=== PATIENT | female | born 1950 | race Caucasian/White ===

== ENCOUNTER 2021-08-19 11:21 | Emergency (ER) | payer MEDICARE, OTHER ==
--- NOTE | 2021-08-19 11:47 | EDM.PDOC ---
ED HPI GENERAL MEDICAL PROBLEM - General Stated Complaint: syncope fall Time Seen by Provider: 08/19/21 11:40 Source of Information: Reports: Patient History Limitations: Reports: No Limitations - History of Present Illness INITIAL COMMENTS - FREE TEXT/NARRATIVE: This patient comes emergency department today from home by ambulance with concerns of a fall. This patient has a history of diabetes hypertension morbid obesity. Woke up this morning and she was feeling fine without any complaints. She was walking to the kitchen when she had a syncopal episode. She did not have any symptoms prior to her fall. She relates that she was just walking in the next thing is she found herself on the ground. She had a bloody nose. She had pain to her left hand and she was unsure of what happened. She has amnesia of the fall. Although she does remember right up to the fall. She summoned the ambulance and the ambulance was brought to the emergency department. Upon arrival to the emergency department the patient is complaining of pain to her left hand as well as just feeling tired. She has no headache visual acuity changes. No neck pain. No paresthesias of her upper or lower extremities. No change in the functionality of her upper or lower remedies. She denies any chest pain shortness of breath or difficulty breathing. No abdominal pain. No back or lower back pain. No pelvis pain. No weakness dizziness lightheadedness. No fever no chills. Left Hand Pain Score (Numeric/FACES): 2 Right Thoracic Pain Score (Numeric/FACES): 2 - Related Data Allergies Allergy/AdvReac Type Severity Reaction Status Date / Time No Known Allergies Allergy Verified 08/19/21 12:49 Home Meds: Home Meds Ascorbic Acid [Vitamin C] 1,000 mg PO DAILY 08/19/21 [History] Aspirin [Aspirin EC] 81 mg PO DAILY 08/19/21 [History] Ca/D3/Mag Ox/Zinc/Split And Drum Room Supervisor/Tru/Bor [Calcium 600+D3 Plus Caplet] 2 each PO DAILY 08/19/21 [History] Hydrocodone/Acetaminophen [HYDROcodone-Acetaminophen 5-325 MG] 1 each PO Q6HR PRN #10 tab 08/19/21 [Rx] Losartan Potassium [Cozaar] 100 mg PO DAILY 08/19/21 [History] Metoprolol Succinate [Toprol XL 100mg] 100 mg PO DAILY 08/19/21 [History] Multivitamin [Multi-Vitamin Daily] 1 each PO DAILY 08/19/21 [History] Rivaroxaban [Xarelto] 20 mg PO DAILY #30 tablet 08/19/21 [Rx] Rosuvastatin [Crestor] 10 mg PO DAILY 08/19/21 [History] amLODIPine [Norvasc] 7.5 mg PO DAILY 08/19/21 [History] ED ROS GENERAL - Review of Systems Review Of Systems: Comprehensive ROS is negative, except as noted in HPI. ED EXAM, NEURO - Physical Exam Exam: See Below Exam Limited By: No Limitations General Appearance: Alert, WD/WN, No Apparent Distress Eye Exam: Bilateral Eye: EOMI, Normal Inspection, PERRL Ears: Normal External Exam, Normal Canal, Hearing Grossly Normal, Normal TMs Nose: Normal Mucosa. No: Normal Inspection (There is some dried blood in the nares with a contusion on the tip of the nose otherwise unremarkable. ), Nasal Tenderness, Nasal Deformity, Nasal Swelling, Nasal Drainage Throat/Mouth: Normal Inspection, Normal Lips, Normal Teeth, Normal Gums, Normal Oropharynx, Normal Voice, No Airway Compromise Head Exam: Atraumatic, Normocephalic Neck: Normal Inspection, Supple, Non-Tender, Full Range of Motion, Other (C Spine cleared by nexus criteria). No: Tender Lateral, Tender Midline Respiratory/Chest: No Respiratory Distress, Lungs Clear, Normal Breath Sounds, No Accessory Muscle Use. No: Chest Non-Tender (Tenderness to the right lateral mid chest about rib 7/8 no bruisng ecchymosis or subcut emphysema) Cardiovascular: Normal Peripheral Pulses, No Murmur, Irregularly Irregular GI/Abdominal: Normal Bowel Sounds, Soft, Non-Tender Rectal (Female) Exam: Deferred Neurological: Alert, Normal Mood/Affect, Normal Dorsiflexion, CN II-XII Intact, Normal Plantar Flexion, Normal Gait, Normal Reflexes, No Motor/Sensory Deficits, Oriented x 3 Back Exam: Normal Inspection, Full Range of Motion. No: Paraspinal Tenderness, Vertebral Tenderness Extremities: No: Normal Inspection (Normal other than swelling to the MCP joint left hand 2nd finger. Able to flex and extend at all joints appropriately. ) Psychiatric: Normal Affect, Normal Mood Skin Exam: Warm, Dry, Intact, Normal Color, No Rash Course - Vital Signs Last Recorded V/S: Last Vital Signs Temp 97.5 F 08/19/21 11:25 Pulse 70 08/19/21 11:25 Resp 16 08/19/21 11:25 BP 135/72 08/19/21 11:25 Pulse Ox 95 08/19/21 11:25 - Orders/Labs/Meds Labs: Laboratory Tests 08/19/21 08/19/21 Range/Units 11:59 11:59 WBC 9.5 (4.0-10.0) x10^3/uL RBC 4.59 (4.00-5.50) x10^6/uL Hgb 14.3 (12.0-16.0) g/dL Hct 42.4 (33.0-47.0) % MCV 92.4 (78.0-93.0) fL MCH 31.2 (26.0-32.0) pg MCHC 33.7 (32.0-36.0) g/dL RDW Coeff of [place] 12.1 (10.0-15.0) % Plt Count 192 (130-400) x10^3/uL Immature Gran % (Auto) 0.50 H (0.00-0.43) % Neut % (Auto) 82.2 H (50.0-80.0) % Lymph % (Auto) 11.3 L (25.0-50.0) % [place] % (Auto) 5.6 (2.0-11.0) % Eos % (Auto) 0.2 (0.0-4.0) % Baso % (Auto) 0.2 (0.2-1.2) % Neut # (Auto) 7.8 H (1.8-7.7) x10^3/uL Lymph # (Auto) 1.1 (1.0-4.8) x10^3/uL [place] # (Auto) 0.5 (0.0-0.8) x10^3/uL Eos # (Auto) 0.0 (0.0-0.5) x10^3/uL Baso # (Auto) 0.0 (0.0-0.2) x10^3/uL Immature Gran # (Auto) 0.05 (0.00-0.07) x10^3/uL Sodium 141 (136-145) mmol/L Potassium 3.9 (3.5-5.1) mmol/L Chloride 104 (98-107) mmol/L Carbon Dioxide 29 (21-32) mmol/L Anion Gap 11.9 (5-15) mmol/L BUN 23 H (7-18) mg/dL Creatinine 1.0 (0.55-1.02) mg/dL Est Cr Clr Drug Dosing TNP Estimated GFR (MDRD) 54 Glucose 138 H (70-99) mg/dL Calcium 9.4 (8.5-10.1) mg/dL Corrected Calcium 9.6 (8.5-10.1) mg/dL Total Bilirubin 0.9 (0.2-1.0) mg/dL AST 44 H (15-37) U/L ALT 69 H (14-59) U/L Alkaline Phosphatase 92 (46-116) U/L Troponin I High Sens 8 (<=51) ng/L Total Protein 7.6 (6.4-8.2) g/dL Albumin 3.7 (3.4-5.0) g/dL Globulin 3.9 Albumin/Globulin Ratio 0.95 Meds: Medications Discontinued Medications Generic Name Dose Route Start Last Admin Trade Name Freq PRN Reason Stop Dose Admin Ibuprofen 600 mg 08/19/21 14:30 08/19/21 14:44 Ibuprofen 200 Mg Tab PO 08/19/21 14:31 600 mg NOW STA Administration Rivaroxaban 20 mg 08/19/21 14:29 08/19/21 14:44 Rivaroxaban 10 Mg Tab PO 08/19/21 14:30 20 mg NOW STA Administration Rivaroxaban 20 mg 08/19/21 14:34 08/19/21 14:45 Rivaroxaban 10 Mg Tab PO 08/19/21 14:35 Not Given NOW STA - Radiology Interpretation Free Text/Narrative:: X-ray of the left hand initially reviewed extemporaneously by myself shows a impacted comminuted fracture of the distal left second metacarpal that appears to extend somewhat into the articulation of the MCP joint. Radiological review to follow. X-ray of the left hand per radiology shows abnormal appearance of the second digit metacarpal in its distal aspect at the MCP articulation. Findings suggest a mildly comminuted and slightly impacted acute fracture extending to the MCP articulation. Correlate with site of pain. CT of the head per radiology shows no acute intracranial findings. Xray initially reviewed by myself extemporaneously I do not see any hemopneumothorax pulmonary contusion infiltrates hemopneumothorax. There is some old healed rib fractures. X-ray of the ribs per radiology including chest shows cardiomediastinal silhouette is unremarkable. Acute appearing right anterolateral eighth rib fracture. No significant displacement. No other fractures are identified. No pulmonary contusion or pneumothorax. The x-ray report from the radiologist was received after the patient was discharged. She was called at home and updated on the findings of the rib fracture. - Re-Assessments/Exams Free Text/Narrative Re-Assessment/Exam: IV was established labs are drawn. EKG shows a controlled atrial fib rate. I reviewed her [place] chart as well as contacting [facility] and I do not see any evidence of where she is at or had an EKG in her past. She is currently on metoprolol although she reports that she takes this for blood pressure and has never been told that she has had atrial fibrillation in the past. CT of the head is unremarkable. She clearly has a fracture of the left second finger distal metacarpal. Patient was placed in a fiberglass splint that manufactured by myself for placement. A stockinette batting and a 3 inch Ortho-Glass splint was fashioned in the left hand a short arm wrist splint in the hand of neutral position. CMS is intact after application. Her laboratory evaluation is rather unremarkable. She has a normal troponin. Normal creatinine. Chest x-ray initially reviewed extemporaneously I do not see any bony abnormality hemopneumothorax. Radiological review to follow. I did get the patient up and ambulate her around the department and she felt quite well. This patient clearly has a new onset of atrial fibrillation. She does have a moderate risk [id number] score which means that she will need anticoagulation. We will place her on Xarelto 20 mg at this time. I do not feel that she needs any rate control as she is already on 100 mg of metoprolol for blood pressure and she is not tachycardic today. I am unsure of the onset her atrial fibrillation. It is also unclear of what the cause of was her syncope. Most likely cardiogenic in nature. We will have her follow-up with primary care to get a Holter monitor placed. I do not see any evidence of bradycardia for over beta-blockade. She will also need to follow-up with Ortho with a fracture in her hand. She was cautioned aggressively on the concerns of being anticoagulated and the concerns of bleeding especially if she falls and hits her head. She needs to have a CT of her head at any time if she is on anticoagulation. She will need to see cardiology for the decision of possible cardioversion versus long-term atrial fibrillation and anticoagulation. This will be left up to primary care and cardiology. She will be discharged home at this time. She was cautioned quite aggressively again on the risk of anticoagulation as well as her concerns for syncope and to get a Holter monitor. She is under both this plan and her questions were answered. Departure - Departure Time of Disposition: 14:43 Disposition: Home, Self-Care 01 Clinical Impression: New onset a-fib, Syncope and collapse Fracture of metacarpal of left hand, closed Qualifiers: Encounter type: initial encounter Metacarpal bone: second Metacarpal location: neck Fracture alignment: nondisplaced Qualified Code(s): S62.361A - Nondisplaced fracture of neck of second metacarpal bone, left hand, initial encounter for closed fracture Fracture, rib Qualifiers: Encounter type: initial encounter Rib fracture type: single rib Fracture type: closed Laterality: right Qualified Code(s): S22.31XA - Fracture of one rib, right side, initial encounter for closed fracture - Discharge Information *PRESCRIPTION DRUG MONITORING PROGRAM REVIEWED*: Not Applicable *COPY OF PRESCRIPTION DRUG MONITORING REPORT IN PATIENT NACHO: Not Applicable Prescriptions: Hydrocodone/Acetaminophen [HYDROcodone-Acetaminophen 5-325 MG] 1 each PO Q6HR PRN #10 tab PRN Reason: Pain Rivaroxaban [Xarelto] 20 mg PO DAILY #30 tablet Instructions: Bleeding Precautions When on Anticoagulant Therapy, Adult, RICE Therapy for Routine Care of Injuries, [id number], Chest Wall Pain, [id number], Metacarpal Fracture, [id number], Atrial Fibrillation, [id number], Syncope, [id number] Referrals: Alyson Galeano PA-C [Primary Care Provider] - Forms: ED Department Discharge Additional Instructions: Splint at all times to the left hand. RICE therapy to the left hand. Ice aggressively over the next 2 days. Elevate above the level of your heart. Tylenol as needed for pain. Continue your previous medications. Metoprolol which you are on will control your heart rate with the atrial fibrillation. Start Xarelto, 20mg daily. First dose given in the ED and RX sent to [facility]. You are now more prone to bleeding. If you have trauma especially a head injury you need to be evaluated for bleeding as it will be more difficult to stop bleeding now that you are on Xarelto. Contact your PCP on saturday. You need a Holter monitor (quality assurance monitor) due to your syncopal episode. Follow up with Margot Freeman in 1 week for recheck of the fracture of your hand. Also need to see your PCP with the new onset of Afib and your syncopal episode. Return to the ED if new or worsening symptoms.
[2021-08-19 12:32] LABS: CHLORIDE,CL 104 mmol/L (98-107); SODIUM,NA 141 mmol/L (136-145)
[2021-08-19 12:33] LABS: ANION GAP 11.9 mmol/L (5-15)
--- NOTE | 2021-08-19 13:14 | CT ---
[id number] CT/CT Head WO IV EXAM: CT Head WO IV CLINICAL DATA: SYNCOPE AMNESIA. COMPARISON STUDY: None FINDINGS: No intracranial hemorrhage, extra-axial fluid collection, mass, or acute ischemia. No hydrocephalus. Calvarium intact. Paranasal sinuses and mastoid air cells are clear. IMPRESSION: No acute intracranial findings. Eyad Law MD 08/19/21 [id number] Thank you for allowing us to participate in the care of your patient.
--- NOTE | 2021-08-19 13:18 | CR ---
[id number] RAD/RAD Hand Left 3V Exam: RAD Hand Left 3V Indication:FALL, HEMATOMA,SWELLING. Comparison: No prior imaging for comparison. Discussion/Impression: Abnormal appearance of the 2nd digit metacarpal in its distal aspect at the MCP articulation. Findings suggest a mildly comminuted and slightly impacted acute fracture extending into the MCP articulation. Correlate with site of pain. Findings are identified. Eyad Law MD 08/19/21 [id number] Thank you for allowing us to participate in the care of your patient.
[2021-08-19] MEDS ORDERED: Rivaroxaban 10 MG Tab PO STA ×2 (14:29→14:34)
[2021-08-19] MEDS ORDERED: Ibuprofen 200 MG Tab PO STA (14:30)
--- NOTE | 2021-08-19 15:43 | CR ---
[id number] RAD/RAD Ribs Right W PA Chest EXAM: RAD Ribs Right W PA Chest INDICATION: FALL, RIB PAIN. COMPARISON: None. DISCUSSION/IMPRESSION: Cardiomediastinal silhouette is unremarkable. Acute appearing right anterolateral 8th rib fracture. No significant displacement. No other fractures are identified. No pulmonary contusion or pneumothorax. Eyad Law MD 08/19/21 [id number] Thank you for allowing us to participate in the care of your patient.
--- NOTE | 2021-08-23 15:40 | PCM.EKG ---
#1 Interpretation EKG Date: 08/19/21 Time: 12:32 Rhythm: A-Fib Rate (Beats/Min): 79 [place]: Normal P-Wave: Present QRS: RBBB ST-T: Normal QT: Normal Comparison: NA - No Prior EKG
== END 2021-08-19 15:00 | disposition home or self-care (01) ==
LOC: VM.ED 11:21
DX: S22.31XA Fracture of one rib, right side, initial encounter for closed fracture (principal); S62.361A Nondisplaced fracture of neck of second metacarpal bone, left hand, initial encounter for closed fracture; I48.91 Unspecified atrial fibrillation; R55 Syncope and collapse; Z79.82 Long term (current) use of aspirin; Z79.01 Long term (current) use of anticoagulants; Z79.899 Other long term (current) drug therapy; W18.30XA Fall on same level, unspecified, initial encounter; Y92.000 Kitchen of unspecified non-institutional (private) residence as the place of occurrence of the external cause
CPT/HCPCS: 29125; 36415; 70450; 71101-RT; 73130-LT; 80053; 84484; 85025; 93005; 99284; 99285-25; A9270-GY